=== PATIENT | female | born 1950 | race Caucasian/White ===

== ENCOUNTER 2018-06-05 06:57 | Observation (INO) | payer MEDICARE, OTHER ==
--- NOTE | 2018-06-05 07:20 | ED ---
Allergic Reaction/Systemic - HPI Summary HPI Summary: Patient is a 67 y/o F received by ambulance from [place] presenting for allergic reaction. She reports that she had a breast biopsy yesterday for calcification on her breast, aspirations were done. Patient is concerned she was allergic to the lidocaine that was used. However, patient does not report previous episodes of allergic reactions to lidocaine. Several rounds of epi 0.3 mg IM were provided for pruritis. Patient does not have compromised respiratory system but patient is experiencing severe urticarial. In the room, she states Sx onset at around 2030 and states she was covered in hives from head to toe. PMHx of asthma and COPD, she is not on home o2. Patient states that she is slightly SOB but notes that this presentation of SOB is similar to previous episodes and she states she would just need her regular inhaler. Patient does not have a pacemaker. PHx pf HTN, venous stasis insufficiency, arthritis is noted as well. She denies PMHx of diabetes. In room, pulse 96, BP 156/73. She is a former smoker, notes that she drinks 3 glasses of wine daily. She denies throat closing, fever, chills, ROBLERO, ear pain, sore throat, blurred vision, double vision, neck pain, CP , SOB, ABD pain, back pain, dysuria, hematuria, blood in the stool, constipation , bruising, anxious and depression. On triage, pain is denied, nothing is noted to aggravate/alleviate Sx, and it is noted that patient had 125mg solumedrol, 20mg pepcid, 40mg po pepcid-0400. 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 Home medications and allergies are reviewed. - History of Current Complaint Hx Obtained From: Patient Onset/Duration: Started hours ago - onset 2030 last night, Still Present Timing: Constant Severity Currently: None - pain denied Pain Intensity: 0 Pain Scale Used: 0-10 Numeric Location: Diffuse - from "head to toe" Character: Pruritus, Hives Aggravating Factor(s): Nothing Alleviating Factor(s): Nothing Associated Signs And Symptoms: Positive: Rash, Other: - denies fever, chills, ROBLERO , ear pain, sore throat, blurred vision, double vision, neck pain, back pain, dysuria, hematuria, blood in the stool, constipation, bruising, anxious and depression. Sob and hives, rashes are endorsed. Negative: Abdominal Pain, Chest Pain, Throat Tightening - Allergies/Home Medications Allergies/Adverse Reactions: Allergies Allergy/AdvReac Type Severity Reaction Status Date / Time morphine Allergy Edema Verified 06/05/18 07:11 Home Medications: Home Medications Albuterol inh POWDER (NF) [Proair Respiclick] 108 mcg [facility] QID 06/05/18 [ History Confirmed 06/05/18] Furosemide 20 mg PO DAILY 06/05/18 [History Confirmed 06/05/18] Hydrochlorothiazide TAB* [Hydrodiuril TAB*] 25 mg PO DAILY 06/05/18 [History Confirmed 06/05/18] Ibuprofen 800 mg PO BID 06/05/18 [History Confirmed 06/05/18] Losartan Potassium 100 mg PO DAILY 06/05/18 [History Confirmed 06/05/18] Montelukast Sodium 10 mg PO DAILY 06/05/18 [History Confirmed 06/05/18] Tiotropium Brom/Olodaterol(NF) [Stiolto Respimat Inh Kimper (60 puff)(NF)] 1 dose IN[facility] DAILY 06/05/18 [History Confirmed 06/05/18] PMH/Surg Hx/FS Hx/Imm Hx Endocrine/Hematology History: Denies: Hx Diabetes Cardiovascular History: Reports: Hx Hypertension Denies: Hx Pacemaker/ICD Respiratory History: Reports: Hx Asthma, Hx Chronic Obstructive Pulmonary Disease (COPD) Musculoskeletal History: Reports: Hx Arthritis, Other Musculoskeletal History - venous stasis insufficiency Sensory History: Denies: Hx Legally Blind, Hx Deafness Opthamlomology History: Denies: Hx Legally Blind EENT History: Denies: Hx Deafness Infectious Disease History: No Infectious Disease History: Denies: Traveled Outside the [place] in Last 30 Days - Family History Known Family History: Positive: Hypertension - Social History Alcohol Use: Daily Alcohol Amount: 3 glasses of wine Substance Use Type: Reports: None Smoking Status (MU): Former Smoker Review of Systems Negative: Fever, Chills Positive: Other - NEGATIVE: double vision . Negative: Blurred Vision Negative: Sore Throat, Ear Ache Negative: Chest Pain Positive: Shortness Of Breath - patient notes some SOB but she notes that she also has Hx of asthma and COPD and states this presentation of SOB is similar to previous episodes she has had Negative: Abdominal Pain Positive: other - NEGATIVE: constipation, blood in stool . Negative: dysuria, hematuria Positive: Edema - PMHx of venous statis insufficiency , Other - NEGATIVE: back pain, neck pain Positive: Rash, Other - hives . Negative: Bruising Negative: Headache Negative: Anxious, Depressed All Other Systems Reviewed And Are Negative: No Physical Exam - Summary Physical Exam Summary: Appearance: Alert, conversive, nontoxic appearing, morbidly obese Skin: Warm, dry, no mottling, no rashes, no contusions HEENT: EOMI, PERRL, dry mucous membranes Neck: No masses on the neck, supple Respiratory: Clear to auscultation, breath sounds present, no rales, no rhonchi , no wheezes Cardiovascular: RRR, pulses are symmetrical in both lower and upper extremities Abdomen: Soft, non-tender Bowel Sounds: Present Musculoskeletal: No CVA tenderness, no obvious deformity, moving all extremities in a grossly normal manner Skin: hives to right cheek down to upper extremities bilaterally Neurological: A&Ox3, CN II-XII Intact, moving all extremities symmetrically Psychiatric: Normal affect and mood Triage Information Reviewed: Yes Vital Signs On Initial Exam: Initial Vitals Temp Pulse Resp BP Pulse Ox 98.3 F 95 20 167/96 97 06/05/18 07:08 06/05/18 07:08 06/05/18 07:08 06/05/18 07:08 06/05/18 07:08 Vital Signs Reviewed: Yes Diagnostics - Vital Signs Vital Signs Temp Pulse Resp BP Pulse Ox 06/05/18 07:08 98.3 F 95 20 167/96 97 - Laboratory Lab Statement: Any lab studies that have been ordered have been reviewed, and results considered in the medical decision making process. Allergic Reaction Course/Dx - Course Course Of Treatment: Patient is a 67 y/o F received by ambulance from [place] presenting for allergic reaction. She reports that she had a breast biopsy yesterday for calcification on her breast, aspirations were done. Patient is concerned she was allergic to the lidocaine that was used. However, patient does not report previous episodes of allergic reactions to lidocaine. Patient does not have compromised respiratory system but patient is experiencing severe urticarial. In the room, she states Sx onset at around 2030 and states she was covered in hives from head to toe. PMHx of asthma and COPD, she is not on home o2. Patient states that she is slightly SOB but notes that this presentation of SOB is similar to previous episodes and she states she would just need her regular inhaler. On triage, it is noted that patient had 125mg solumedrol, 20mg pepcid, 40mg po pepcid-0400. 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 On physical exam, patient is noted to be morbidly obese, have dry mucous membranes, and hives from right cheek to upper extremities. Admission was discussed with patient in the room, she is agreeable. Patient's case was discussed with Dr. Rossi at 0824. Dr. Rossi accepts patient for admission. Dx of allergic reaction. - Diagnoses Provider Diagnoses: Allergic reaction - Provider Notifications Discussed Care Of Patient With: Melinda Rossi Time Discussed With Above Provider: 08:24 Instructed by Provider To: Other - Patient's case was discussed with Dr. Rossi at 0824. Dr. Rossi accepts patient for admission. Discharge - Sign-Out/Discharge Documenting (check all that apply): Patient Departure - admit - Discharge Plan Condition: Good Disposition: ADMITTED TO [facility] - Billing Disposition and Condition Condition: GOOD Disposition: Admitted to [facility] - Attestation Statements Document Initiated by Scribe: Yes Documenting Scribe: Noah Huynh Provider For Whom Mahin is Documenting (Include Credential): Deloris Wiggins MD Scribe Attestation: Noah Wilkerson , scribed for Deloris Wiggins MD on 06/06/18 at 0916. Scribe Documentation Reviewed: Yes Provider Attestation: The documentation as recorded by the daryaibNoah jang accurately reflects the service I personally performed and the decisions made by me, Deloris Wiggins MD
[2018-06-05] MEDS ORDERED: diPHENhydraMINE IV* 50 MG/ML 1 ml VIAL (BENADRYL) IV ONE (09:19)
[2018-06-05] MEDS ORDERED: hydrOXYzine HCL TAB* 25 MG PO PRN (09:31)
[2018-06-05] MEDS ORDERED: LORazepam TAB(*) 0.5 MG PO PRN (09:31)
[2018-06-05] MEDS ORDERED: Albuterol 2.5 MG/3 ML NEB.SOL* (0.083%) INH PRN (09:35)
[2018-06-05] MEDS ORDERED: hydrOXYzine HCL TAB* 50 MG PO ONE (09:37)
[2018-06-05] MEDS ORDERED: Albuterol 2.5 MG/3 ML NEB.SOL* (0.083%) INH ONE (09:39)
[2018-06-05] MEDS ORDERED: NS 0.9% 1000 ML* 1,000 ML IV SCH (09:45)
[2018-06-05] MEDS ORDERED: diPHENhydraMINE PO* 25 MG ONE (09:47)
[2018-06-05] MEDS: Tiotropium CAP.INH* CAP.INH/18 MCG (USE ORDER SET !) INH SCH (11:29)
[2018-06-05] MEDS: CMC:Formoterol 20 MCG/2ML NEB (NF) 10 MCG/ML NEB.SOLN INH SCH (11:30)
[2018-06-05] MEDS ORDERED: Spiriva Inhaler DEVICE* 1 EACH DEVICE INH ONE (11:30)
[2018-06-05] MEDS: Losartan TAB* 25 MG PO SCH (11:31)
[2018-06-05] MEDS: predniSONE TAB* 20 MG PO SCH (11:32)
[2018-06-05] MEDS: Hydrochlorothiazide TAB* 25 MG PO SCH (11:32)
[2018-06-05] MEDS: Famotidine IV* 10 MG/ML 2 ML (20 mg) IV SLOW PU SCH ×2 (11:33→21:30)
[2018-06-05] MEDS: Montelukast Sodium TAB* 10 MG PO SCH (11:36)
--- NOTE | 2018-06-05 11:39 | HP ---
CC: Dr. Philip * HISTORY AND PHYSICAL: DATE OF ADMISSION: 06/05/18 PRIMARY CARE PROVIDER: Dr. Philip. CHIEF COMPLAINT: Hives. HISTORY OF PRESENT ILLNESS: Ms. Parada is a 67-year-old female who has a history of COPD and hypertension who presented initially to [facility] around 8:30 p.m. on the night prior to admission with complaints of hives. Earlier in the day yesterday the patient underwent a biopsy of the right breast for microcalcification. She states that at that time her skin was prepped with chlorhexidine and lidocaine was used to numb the area. Approximately 6 p.m. she developed hives over her entire body. She informed her that the itching was quite severe and due to the hives covering her entire body she felt that she needed to present to the emergency room for evaluation. She states that she has not had any changes in her usual medications. She states that she has never had any issues with Novocain in the past. She received 5 rounds of epinephrine with the latest being at approximately 6 a.m. prior to transfer to [facility], 3 rounds of Pepcid and 3 rounds of Benadryl while at [facility] and despite that she continues to have hives that are persisting and still very itchy. The patient states after the first 4 rounds of epinephrine the hives would go away for approximately 2 hours; however, the hives subsequently come back. After the fifth round of epinephrine she states that she noticed no improvement in her hives. The itching is quite severe at this time. She states hives are everywhere including the palms of her hands, her scalp, all over her face, and the rest of her body. She denies any tongue, mouth, or lip swelling. She denies any shortness of breath, outside of saying that she feels like she needs to use her inhaler for her COPD/asthma. PAST MEDICAL HISTORY: 1. COPD/asthma. 2. Hypertension. PAST SURGICAL HISTORY: 1. Hysterectomy. 2. Cholecystectomy. 3. Umbilical hernia repair. 4. Incisional hernia repairs. 5. Panniculectomy. 6. Kathy-en-Y gastric bypass. 7. Small bowel resection for small bowel obstruction. 8. Appendectomy. MEDICATIONS: 1. Losartan 100 mg p.o. daily. 2. Stiolto 1 puff inhaled daily. 3. Singulair 10 mg p.o. daily. 4. Ibuprofen 800 mg p.o. b.i.d. 5. Hydrochlorothiazide 25 mg p.o. daily. 6. Lasix 20 mg p.o. daily. 7. ProAir RespiClick 1 puff inhaled 4 times daily. ALLERGIES: MORPHINE which causes rash. FAMILY HISTORY: Mom at the age of 89. She had a history of multiple TIAs and CVAs. Dad at the age of 61. He had lung and throat cancer. SOCIAL HISTORY: The patient is a former smoker of 2 packs per day for approximately 16 years. She quit smoking 25 to 30 years ago. She drinks 3 glasses of wine daily. She works as an RN at [employer]. She is . She has one child. She indicates that her is her healthcare proxy. REVIEW OF SYSTEMS: A complete 11-system review of systems was obtained. Pertinent positives and negatives are as per HPI and otherwise negative. PHYSICAL EXAMINATION GENERAL: The patient is a well-developed, obese, middle aged female, sitting in a chair, squirming due to itching and frequently seen itching her limbs, but in no acute distress. VITAL SIGNS: Blood pressure 167/96, pulse 95, respirations 20, temp 98.3, O2 sat 97% on room air. HEENT: Pupils are equally round. Extraocular muscles are intact. Oropharynx is clear. Oral mucosa is moist. The patient wears dentures. NECK: There is no submandibular or supraclavicular adenopathy. Thyroid is not enlarged. No thyroid nodules noted. PULMONARY: Lungs are clear to auscultation bilaterally. CARDIAC: Normal S1 and S2. Heart rate is tachycardic, but regular. There are no murmurs. She has minimal edema to the legs bilaterally. ABDOMEN: Bowel sounds are present. Abdomen is soft, nontender, nondistended. MUSCULOSKELETAL: There is no cyanosis or clubbing of the digits. There is full active range of motion of all 4 extremities. NEURO: Cranial nerves II through XII are grossly intact. Sensation is intact to light touch throughout. Strength is 5/5 and symmetric in both upper and lower extremities bilaterally. SKIN: Warm and dry. She has diffuse hives and erythema over her entire body including the palms of her hands. The right breast biopsy site is covered in Steri- Strips and appears to have no drainage. PSYCH: The patient is alert. She is oriented x3. Affect appears appropriate. LABORATORY DATA/DIAGNOSTIC STUDIES: WBC 9.3, hemoglobin 15.3, hematocrit 46.7, platelets 307. Sodium 138, potassium 3.9, chloride 99, CO2 23, BUN 15, creatinine 0.7, glucose 188, calcium 8.7, albumin 3.2, AST 34, ALT 37, alk phos 89, bilirubin 0.2. ASSESSMENT AND PLAN: Ms. Parada is a 67-year-old female with history of hypertension and chronic obstructive pulmonary disease who presented to [facility] with the sudden onset of diffuse hives, was subsequently transferred to [facility] for evaluation of possible anaphylaxis. 1. Allergic reaction. The patient states that her breast biopsy was performed approximately 10 a.m. on the day of the onset of hives. Her hives began to develop around 6 p.m. I questioned if this maybe an allergic reaction to the lidocaine that was used or perhaps chlorhexidine skin prep. The patient has been taking her usual medication, has had no change with these. She did not eat anything out of the ordinary for her last evening. 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 The patient was also reportedly extremely anxious and her face was flushed with red spots. Her initial O2 saturation was 86% on room air. She was given 2 DuoNeb treatments and racemic epi via neb as well as Solu-Medrol, Benadryl, and Pepcid. The patient at this point has no significant complaints of shortness of breath. She does state that her breathing feels tight, like she needs to use her inhaler, but this is what she typically feels like when she needs to use her inhaler, it is not any worse. The patient continues to have diffuse hives all over her body. We utilize Atarax for itching and continue Pepcid twice daily and prednisone. She did receive 60 mg of prednisone at [facility] at approximately 4 a.m. At this point, the patient will be admitted under observation status and we will monitor her symptoms. The patient does state that her breathing feels tight currently; therefore, we will give an albuterol nebulizer and continuous p.r.n. she does not appear to be in anaphylaxis at this point. Try to gain symptom control. 2. Chronic obstructive pulmonary disease. The patient will continue on albuterol nebs p.r.n. She is on a combination inhaler called Stiolto, this is nonformulary. I have asked the pharmacy to autosubstitute an appropriate medication for this. She will also continue on her Singulair. 3. Hypertension. The patient's blood pressure here is moderately elevated though she had received 5 rounds of epinephrine previously with the last being approximately 6 a.m. We will continue her on her home medication regimen and monitor her blood pressure. 4. DVT prophylaxis. According to the Adult Thrombosis Prophylaxis Risk Factor Assessment Guide the patient has a total risk factor score of 4, making her high risk. Lovenox 40 mg subcutaneous daily will be utilized as DVT prophylaxis. Code status is full. TIME SPENT: Time of 65 minutes was spent admitting this patient. [id number]/[facility] #: [id number] KRISTY
[2018-06-05] MEDS ORDERED: Enoxaparin(*) 40 MG/0.4 ML SYR SUBCUT SCH (21:00)
[2018-06-06] MEDS: Montelukast Sodium TAB* 10 MG PO SCH (07:24)
[2018-06-06] MEDS: Famotidine IV* 10 MG/ML 2 ML (20 mg) IV SLOW PU SCH (07:24)
[2018-06-06] MEDS: Hydrochlorothiazide TAB* 25 MG PO SCH (07:25)
[2018-06-06] MEDS: predniSONE TAB* 20 MG PO SCH (07:25)
[2018-06-06] MEDS: Losartan TAB* 25 MG PO SCH (07:25)
[2018-06-06] MEDS: Tiotropium CAP.INH* CAP.INH/18 MCG (USE ORDER SET !) INH SCH (07:52)
[2018-06-06] MEDS: CMC:Formoterol 20 MCG/2ML NEB (NF) 10 MCG/ML NEB.SOLN INH SCH (07:52)
[2018-06-06] MEDS ORDERED: OLODATEROL INH SCH (09:00)
[2018-06-06] MEDS ORDERED: TIOTROPIUM BROM INH SCH (09:00)
[2018-06-06] MEDS ORDERED: MDI INH SCH (09:00)
[2018-06-06 12:33] VITALS: BP 151/58
--- NOTE | 2018-06-07 09:49 | DS ---
CC: Dr. Philip * DISCHARGE SUMMARY: DATE OF ADMISSION: 06/05/18 DATE OF DISCHARGE: 06/06/18 PRIMARY CARE PROVIDER: Dr. Philip. PRINCIPAL DIAGNOSIS: Acute urticaria of unclear etiology. SECONDARY DIAGNOSES: 1. Chronic obstructive pulmonary disease. 2. Hypertension. DISCHARGE MEDICATIONS: 1. Stiolto 1 inhalation daily. 2. Singulair 10 mg p.o. daily. 3. Losartan 100 mg p.o. daily. 4. Hydrochlorothiazide 25 mg p.o. daily. 5. Lasix 20 mg p.o. daily. 6. Albuterol RespiClick 1 puff inhaled 4 times daily. 7. Prednisone 60 mg p.o. x1 day, then 50 mg x1 day, then 40 mg x1 day, then 30 mg x1 day, then 20 mg x1 day, then 10 mg x1 day, then stop. 8. Famotidine 20 mg p.o. b.i.d. x5 days. HOSPITAL COURSE: Ms. Parada is a 67-year-old female who underwent a breast biopsy on 06/04/18 for microcalcifications of the right breast and subsequently at approximately 6 p.m. on the night post biopsy developed diffuse hives. The patient by 8:30 p.m. that night was covered from head to toe in hives and had severe itching. The patient presented to the [facility], where she was treated with several rounds of epinephrine as well as Benadryl and a H2 deshawn and steroids. At the time of presentation to [facility], the patient was reportedly wheezing, which was appreciated without using the stethoscope. This had improved with treatment at [facility]. Due to the persistent hives, she was subsequently transferred to [facility] for further evaluation. The patient was continued on prednisone and continued with Atarax for itching and Pepcid. By the morning of 06/06/18, the patient states most of the hives were gone, except for a couple of spots on her arms, which by the time of discharge were completely resolved. The patient is feeling dramatically better at this point and ready to go home. On the day of discharge, the patient is awake, alert, and oriented, sitting on the edge of the bed, in no acute distress. Her vital signs are stable with a blood pressure of 151/58, pulse 67, respirations 16, temp 97.9, and an O2 sat of 97% on room air. Her lungs are clear. Her abdomen is soft, nontender, nondistended. Her cardiac exam reveals a normal S1, S2 with a regular rate and rhythm. She has trace lower extremity edema bilaterally. FOLLOWUP CONCERNS: The patient is being discharged home today, 06/06/18. Activity level is as tolerated. Diet is heart-healthy. CONDITION ON DISCHARGE: Stable. The patient should follow up with Dr. Philip in the 4 to 7 days. TIME SPENT: Twenty five minutes were spent discharging this patient. [id number]/[facility] #: [id number] MTDD
== END 2018-06-06 15:40 | disposition home or self-care (01) ==
LOC: ED 06:57 → MED 10:10
PROVIDERS: ADMIT Hospitalist; ATTEND Hospitalist
DX: L50.9 Urticaria, unspecified (principal); J44.9 Chronic obstructive pulmonary disease, unspecified; I10 Essential (primary) hypertension; J45.909 Unspecified asthma, uncomplicated; Z90.710 Acquired absence of both cervix and uterus; Z90.89 Acquired absence of other organs
CPT/HCPCS: 94640; 96361; 96372; 96374; 96375; 99284; A9270-GY; G0378; J7512